=== PATIENT | female | born 1965 | race American Indian/Alaskan Native ===

== ENCOUNTER 2017-02-28 17:32 | Emergency (ER) | payer OTHER ==
[2017-02-28] MEDS ORDERED: NORCO 5/325 PO ONE (18:10)
[2017-02-28] MEDS ORDERED: APRESOLINE PO ONE (18:11)
[2017-02-28 19:54] VITALS: BP 211/85
--- NOTE | 2017-02-28 19:56 | Cat Scan Report ---
FINAL REPORT PROCEDURE: CT head without contrast. TECHNIQUE: Computerized tomography of the head was performed without contrast material. HISTORY: Head trauma, headache. COMPARISON: No prior studies are available for comparison. FINDINGS: The ventricles are normal in size. The frias matter and white matter appear normal. There are no mass lesions. There is no intracranial hemorrhage. The calvarium appears intact. The mastoid air cells and paranasal sinuses are clear as far as visualized. IMPRESSION: Normal study.
--- NOTE | 2017-02-28 20:04 | Emergency Department Report ---
Entered by IRLANDA FOUNTAIN, acting as scribe for IVANA LARES NP. <IVANA LARES - Last Filed: 02/28/17 20:03> ED Head Trauma HPI - General Chief complaint: Head Injury Stated complaint: HEAD PAIN Time Seen by Provider: 02/28/17 18:03 Source: patient Mode of arrival: Wheelchair Limitations: No Limitations - History of Present Illness Initial comments: 52 y/o presents to the ED c/o head injury that occurred today. Associated symptoms include pain but she denies LOC, fever, chills, nausea and vomiting. Patient's aunt states pain to head due to gutter falling off of house and hitting patient in head. No alleviating or aggravating factors. Allergic to gabapentin and pregabalin. MD Complaint: head injury -: This afternoon Mechanism of Injury: other (gutter falling off and hitting her head) Loss of Consciousness: no Previous Trauma to this Area: No Place: home Radiation: none Consistency: constant Provoking factors: none known Other Injuries: none Associated Symptoms: other (pain, denies: LOC, fever, chills, nausea and vomiting) - Related Data Home Medications Medication Instructions Recorded Confirmed Last Taken Enoxaparin [Lovenox] 100 mg SQ Q12HR 10/02/15 10/02/15 09/25/15 Furosemide [Lasix] 20 mg PO BID 10/02/15 10/02/15 10/01/15 Haloperidol 0.5 mg PO DAILY 10/02/15 10/02/15 10/01/15 Hydralazine HCl [Apresoline TAB] 50 mg PO TID 10/02/15 10/02/15 10/01/15 Insulin NPH Human Isophane 35 unit SQ QHS 10/02/15 10/02/15 10/01/15 [HumuLIN N] Insulin Regular, Human [HumuLIN R] 15 unit SQ TID 10/02/15 10/02/15 10/01/15 Lisinopril [Zestril TAB] 40 mg PO QDAY 10/02/15 10/02/15 10/01/15 Potassium Chloride [K-Tab ER] 10 meq PO BID 10/02/15 10/02/15 10/01/15 Warfarin [Coumadin] 5 mg PO QDAY 0310/02/15 10/01/15 amLODIPine [Norvasc] 5 mg PO DAILY 10/02/15 10/02/15 10/01/15 oxyCODONE [Roxicodone] 5 mg PO Q4-6H PRN 10/02/15 10/02/15 10/01/15 risperiDONE [RisperDAL] 1 mg PO DAILY 10/02/15 10/02/15 10/01/15 Previous Rx's Medication Instructions Recorded Last Taken Type Acetaminophen [Acetaminophen TAB] 1,000 mg PO Q6HR PRN #30 tablet 02/28/17 Unknown Rx Allergies/Adverse reactions: Allergies Allergy/AdvReac Type Severity Reaction Status Date / Time gabapentin Allergy Swelling Verified 10/02/15 10:19 pregabalin [From Lyrica] Allergy Swelling Verified 10/02/15 10:19 ED Review of Systems Comment: All other systems reviewed and negative Constitutional: denies: chills, fever Gastrointestinal: denies: nausea, vomiting Neurological: other (head injury, pain, denies: LOC) ED Past Medical Hx - Past Medical History Previous Medical History?: Yes Hx Hypertension: Yes Hx Diabetes: Yes Hx Psychiatric Treatment: Yes (BIpolar/schizophrenia) Additional medical history: Neuropathy. Staph infection in R foot - Surgical History Past Surgical History?: Yes Additional Surgical History: Right toe surg 09/2015. Right 2nd toe amputation - Social History Smoking Status: Never Smoker Substance Use Type: None - Medications Home Medications: Home Medications Medication Instructions Recorded Confirmed Last Taken Type Enoxaparin [Lovenox] 100 mg SQ Q12HR 10/02/15 10/02/15 09/25/15 History Furosemide [Lasix] 20 mg PO BID 10/02/15 10/02/15 10/01/15 History Haloperidol 0.5 mg PO DAILY 10/02/15 10/02/15 10/01/15 History Hydralazine HCl [Apresoline TAB] 50 mg PO TID 10/02/15 10/02/15 10/01/15 History Insulin NPH Human Isophane 35 unit SQ QHS 10/02/15 10/02/15 10/01/15 History [HumuLIN N] Insulin Regular, Human [HumuLIN R] 15 unit SQ TID 10/02/15 10/02/15 10/01/15 History Lisinopril [Zestril TAB] 40 mg PO QDAY 10/02/15 10/02/15 10/01/15 History Potassium Chloride [K-Tab ER] 10 meq PO BID 10/02/15 10/02/15 10/01/15 History Warfarin [Coumadin] 5 mg PO QDAY 10/02/15 10/02/15 10/01/15 History amLODIPine [Norvasc] 5 mg PO DAILY 10/02/15 10/02/15 10/01/15 History oxyCODONE [Roxicodone] 5 mg PO Q4-6H PRN 10/02/15 10/02/15 10/01/15 History risperiDONE [RisperDAL] 1 mg PO DAILY 10/02/15 10/02/15 10/01/15 History Acetaminophen [Acetaminophen TAB] 1,000 mg PO Q6HR PRN #30 tablet 02/28/17 Unknown Rx ED Physical Exam - General Limitations: No Limitations General appearance: alert, in no apparent distress - Head Head exam: Present: atraumatic, normocephalic, normal inspection - Eye Eye exam: Present: normal appearance, PERRL, EOMI Pupils: Present: normal accommodation - ENT ENT exam: Present: normal exam, normal orophraynx, mucous membranes moist, TM's normal bilaterally, normal external ear exam - Neck Neck exam: Present: normal inspection, full ROM. Absent: tenderness, meningismus, lymphadenopathy, thyromegaly - Respiratory Respiratory exam: Present: normal lung sounds bilaterally. Absent: respiratory distress, wheezes, rales, rhonchi, chest wall tenderness, accessory muscle use, decreased breath sounds - Cardiovascular Cardiovascular Exam: Present: regular rate, normal rhythm, normal heart sounds. Absent: bradycardia, tachycardia, irregular rhythm, systolic murmur, diastolic murmur, rubs, gallop - GI/Abdominal GI/Abdominal exam: Present: soft, normal bowel sounds. Absent: tenderness, guarding, rebound - Extremities Exam Extremities exam: Present: normal inspection, full ROM, normal capillary refill. Absent: tenderness, pedal edema, joint swelling, calf tenderness - Back Exam Back exam: Present: normal inspection, full ROM. Absent: tenderness, CVA tenderness (R), CVA tenderness (L), muscle spasm, paraspinal tenderness, vertebral tenderness, rash noted - Neurological Exam Neurological exam: Present: alert, oriented X3 - Psychiatric Psychiatric exam: Present: normal affect, normal mood - Skin Skin exam: Present: warm, dry, intact, normal color. Absent: rash ED Course Vital Signs 02/28/17 02/28/17 02/28/17 17:42 18:22 18:30 Temperature 98.8 F Pulse Rate 107 H 73 Respiratory 22 18 Rate Blood Pressure 198/108 232/119 Blood Pressure 232/119 [Right] O2 Sat by Pulse 98 99 Oximetry 02/28/17 02/28/17 19:13 19:53 Temperature Pulse Rate 79 79 Respiratory 20 Rate Blood Pressure Blood Pressure 224/116 211/85 [Right] O2 Sat by Pulse 99 100 Oximetry - Radiology Data Radiology results: report reviewed normal ct scan of head - Medical Decision Making pt is a 52 y/o special needs (MR) aaf aunt as anna accompanying pt , pt is s /p gutter versus head 2 hrs ago there was no loc no lacertion no abrasion no stepoff no crepitus no dizziness no h/v no lightheadedness , perrla , eomi, conjuntivae pinke, TMs clear bilat no blood nares patent bilat no blood no n/v, pt is a/ox 3 ambulatory gait steady with nad , pt complains of headache 4/10 , pain improved with lortab as pt take oxcodone qid at home for chronic pain, pt bp noted did not take bp meds given scheduled hydralazine po bp recheck Plan: dc to palliative care nurse, caregiver and patient given closed head injury precautions , palliative care nurse verbalized understanding and agreement with same. - NEXUS Criteria Focal neurological deficit present: No Midline spinal tenderness present: No Altered level of consciousness: No Intoxication present: No Distracting injury present: No NEXUS results: C-Spine can be cleared clinically by these results. Imaging is not required. ED Disposition Disposition: DC-01 TO HOME OR SELFCARE Is pt being admited?: No Does the pt Need Aspirin: No Condition: Good Instructions: Minor Head Injury (ED) Prescriptions: Acetaminophen [Acetaminophen TAB] 1,000 mg PO Q6HR PRN #30 tablet PRN Reason: Headache Referrals: PRIMARY CARE, [Primary Care Provider] - 3-5 Days Forms: Work/School Release Form(ED) Time of Disposition: 20:03 <CHADWICK MULTANI - Last Filed: 03/03/17 14:59> - Radiology Data Radiology results: report reviewed (ct head neg) This documentation as recorded by the ESSIE pat ELIZABETH,accurately reflects the service I personally performed and the decisions made by , IVANA LARES NP.
== END 2017-02-28 20:09 | disposition home or self-care (01) ==
LOC: ED 17:32
DX: S09.90XA Unspecified injury of head, initial encounter (principal); I10 Essential (primary) hypertension; E11.9 Type 2 diabetes mellitus without complications; F20.9 Schizophrenia, unspecified; G62.9 Polyneuropathy, unspecified; Z88.8 Allergy status to other drugs, medicaments and biological substances; Z79.4 Long term (current) use of insulin; W22.8XXA Striking against or struck by other objects, initial encounter; Y93.89 Activity, other specified; Y99.8 Other external cause status; Y92.89 Other specified places as the place of occurrence of the external cause
CPT/HCPCS: 70450